=== PATIENT | female | born 1990 | race African-American/Black ===

== ENCOUNTER 2017-12-31 23:39 | Emergency (ER) | payer MEDICAID ==
[~2017-12-31] VITALS: Ht 165.1 cm; Wt 104.3 kg
[2017-12-31 23:45] VITALS: BP 106/70
[2018-01-01] MEDS ORDERED: TETANUS-DIPTH-ACEL PERTUSSIS 0.5ML SYRG IM ONE (02:45)
== END 2018-01-01 02:32 | disposition home or self-care (01) ==
LOC: ER 23:39
DX: L03.115 Cellulitis of right lower limb (principal)
CPT/HCPCS: 73620; 81025; 90471; 90715